=== PATIENT | female | born 1980 | race Caucasian/White ===

== ENCOUNTER 2021-11-16 15:29 | Emergency (ER) | payer BC, SELFPAY ==
[2021-11-16 15:34] VITALS: PULSE 90; RESP 16; O2SAT 99; BMI 16.1
[2021-11-16 16:00] VITALS: PULSE 90; RESP 16; TEMP 36.8; O2SAT 99; BMI 16.0
--- NOTE | 2021-11-16 16:04 | HMH.EDUTC ---
[facility] [place] Impression: Bronchitis Sinusitis Qualifiers: Sinusitis location: unspecified location Chronicity: unspecified Qualified Code(s): J32.9 - Chronic sinusitis, unspecified Disposition: Home, Self-Care Condition on Discharge: Good Instructions: Sinusitis, Cough, DI for Sinusitis, Azithromycin Additional Instructions: ? Start antibiotic today. Be sure to complete entire prescription even if feeling better ? Monitor temp. Tylenol every 4 hours as needed and / or ibuprofen every 6 hours as needed ( As long as your primary care physician has told you that it ok to take both. For fever/aches/pains ER if no less than 101 despite Tylenol or Motrin ? Humidifier/vaporizer or hot steamy shower ? Inhaler every 4-6 hours as needed like we discussed. If unsure how to use it, ask pharmacist to demonstrate how. Should help open airways and improve cough, wheezing, and shortness of breath *Tessalon Perles will not cause drowsiness but use at bedtime to help stop cough so that you may get some rest. *Start steroid today. Helps with inflammation therefore, cough and wheezing. Follow directions on the package. Reviewed side effects. Patient reports taking them before. Follow up IMMEDIATELY for new or worsening of symptoms OR no noticeable improvement over the next 48-72 hours. 911 immediately for any life threatening symptoms such as chest pain or difficulty breathing Prescriptions: Albuterol Sulfate [Proventil-HFA 90mcg/puff Inh] 1 - 2 puffs IH Q4HP PRN #1 each PRN Reason: Shortness Of Breath Transmission Status: Pending to [facility] Benzonatate [Benzonatate 100mg cap] 100 mg PO Q8HP PRN #30 cap PRN Reason: Cough Transmission Status: Pending to [facility] predniSONE [Prednisone 20mg Tab] 20 mg PO BID 5 Days #10 tab Transmission Status: Pending to [facility] Azithromycin [Z-Jeffrey 250mg Tab] 250 mg PO DIRECTED #6 tab Transmission Status: Pending to [facility] Referrals: Provider,Referral, MD [Primary Care Provider] - As needed Time of Disposition: 16:20 Medical Decision Making - Juan Inquiry Pt receiving controlled substance: No Juan was queried for this patient: No Vital Signs: 11/16/21 15:34 11/16/21 16:00 Temperature 98.2 F Temperature Source Oral Pulse Rate [Right] 90 90 Respiratory Rate 16 16 02 Sat by Pulse Oximetry 99 99 Oxygen Delivery Method Room Air Room Air [facility] [place] - General Stated complaint: Cough, SOA, Body aches Time Seen by Provider: 11/16/21 16:05 Mode of Arrival: Ambulatory Source of Information: Patient Limitations: No Limitations Description of Symptoms (Recalled from Triage Doc. by RN): PATIENT C/O COUGH X 2 WEEKS, NASAL CONGESTION, LUNG PAIN, AND OCCASIONAL SOA HEENT Symptoms (Recalled from RN notes): Yes Resp Symptoms (Recalled from RN notes): Yes Skin Symptoms (Recalled from RN notes): No MS Symptoms (Recalled from RN notes): No Functional Status (Recalled from RN notes): WNL - History of Present Illness Provider Complaint: Patient state that she has been having sinus congestion and pressure, cough, and at times her lungs hurt from coughing States that she feels like she has a bad sinus infection that will not go away States that today she was still having drainage and coughing so she come in to get checked - Related Data Previous Rx's Medication Instructions Recorded Albuterol Sulfate [Proventil-HFA 1 - 2 puffs IH Q4HP PRN #1 each 11/16/21 90mcg/puff Inh] Azithromycin [Z-Jeffrey 250mg Tab] 250 mg PO DIRECTED #6 tab 11/16/21 Benzonatate [Benzonatate 100mg 100 mg PO Q8HP PRN #30 cap 11/16/21 cap] predniSONE [Prednisone 20mg 20 mg PO BID 5 Days #10 tab 11/16/21 Tab] Allergies Allergy/AdvReac Type Severity Reaction Status Date / Time No Known Allergies Allergy Verified 11/16/21 16:14 - Worker's Comp Is this a Worker's Comp case?: No [facility] History - Hepatitis A Screen
[2021-11-16 16:20] VITALS: BP 128/78; PULSE 90; RESP 16; TEMP 36.8; O2SAT 99
== END 2021-11-16 16:30 | disposition home or self-care (01) ==
PROVIDERS: Emergency Provider Nurse Practitioner
DX: J20.9 Acute bronchitis, unspecified (principal); J32.9 Chronic sinusitis, unspecified
CPT/HCPCS: 99212; G0463